=== PATIENT | male | born 1945 | race Caucasian/White ===

== ENCOUNTER 2021-12-27 10:39 | Emergency (ER) | payer MEDICARE, OTHER ==
[~2021-12-27] VITALS: Ht 177.8 cm; Wt 99.8 kg
[2021-12-27 12:19] VITALS: BP 161/67
[2021-12-27] MEDS ORDERED: MORPHINE SULFAT15 MG PO (12:20)
== END 2021-12-27 12:26 | disposition home or self-care (01) ==
LOC: ER 11:16
DX: S42.022A Displaced fracture of shaft of left clavicle, initial encounter for closed fracture (principal); W01.0XXA Fall on same level from slipping, tripping and stumbling without subsequent striking against object, initial encounter; Y93.01 Activity, walking, marching and hiking; Y92.098 Other place in other non-institutional residence as the place of occurrence of the external cause; Z95.810 Presence of automatic (implantable) cardiac defibrillator; I25.10 Atherosclerotic heart disease of native coronary artery without angina pectoris; Z95.1 Presence of aortocoronary bypass graft
CPT/HCPCS: 71045; 99283